=== PATIENT | male | born 1955 | race Caucasian/White ===

== ENCOUNTER 2017-02-20 13:42 | Emergency (ER) | payer OTHER ==
[2017-02-20 13:46] VITALS: TEMP 36.5
[2017-02-20] MEDS ORDERED: ASPIRIN 81 MG CHEW PO STA (14:26)
--- NOTE | 2017-02-20 14:29 | EMERGENCY ROOM VISIT NOTE ---
History First contact with patient: 14:14 Chief Complaint: ARM PAIN Stated Complaint: PAIN DOWN LEFT ARM, FINGERS AND NECK History of Present Illness The patient is a 61 year old male who presents to the Emergency Room via private vehicle accompanied by female with complaints of "pain down left arm, fingers and neck". 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 The patient states that he past few days has had gripping substernal chest pain as well. He rates the pain earlier as a 7/10, but notes now does a 2/10. There was associated nausea at the time of the event. At the time, he also stated his left arm felt numb, and was weaker than the rest however at this time notes that the strength has returned. He denies any shortness of breath, chest pain, speech troubles, weakness in the other extremities, history of blood clots. He does smoke 50 years. Review of Systems A complete 10-point Review of Systems was discussed with the patient, with pertinent positives and negatives listed in the History of Present Illness. All remaining Review of Systems questions can be considered negative unless otherwise specified. Past Medical/Surgical History Skin problems, bronchitis. Family History Heart disease, high blood pressure, cancer, Parkinson's. Social History Smoking Status: Current Every Day Smoker Patient lives with spouse, is currently employed. Admits to tobacco use 50 years, and denies alcohol use. Current/Historical Medications No Active Prescriptions or Reported Meds Physical Exam Vital Signs Date Time Temp Pulse Resp B/P (MAP) Pulse Ox O2 Delivery O2 Flow Rate FiO2 02/20/17 17:35 60 16 130/77 99 Room Air 02/20/17 16:00 63 16 117/83 98 Room Air 02/20/17 15:08 70 16 130/74 98 Room Air 02/20/17 15:07 98 Room Air 02/20/17 13:46 36.5 72 20 145/60 98 Room Air Physical Exam VITAL SIGNS - Vital signs and nursing notes were reviewed. Patient is afebrile , hypertensive at 145/60, non-tachycardic and saturating well on room air 98%. GENERAL -61-year-old male appearing his stated age who is in no acute distress. Communicates well with provider and answers questions appropriately. SKIN - Without rashes. No petechial rashes. HEAD - NC/AT. EYES - PERRL with EOMI bilaterally. Sclera anicteric. Palpebral conjunctiva pink and moist with no injection noted. EARS - No deformities of external structures noted on gross examination bilaterally. No pain elicited with palpation of the tragus bilaterally. External auditory canals without discharge or otorrhea. Tympanic membranes pearly magana without retraction or bulging. No fluid or purulent material visualized behind the TM. Handle of malleus, umbo, cone of light, pars tensa/ flaccid all easily visualized. NOSE - Midline and without cyanosis. No epistaxis or purulent drainage noted. Septum midline without deviation or septal hematoma noted. MOUTH/OROPHARYNX - Without perioral cyanosis. Buccal mucosa pink and moist and without leukoplakia. Tongue midline with equal elevation of palate bilaterally. No tonsillar hypertrophy, erythema, or exudates noted. [] dentition noted. NECK - Neck with FROM. Supple to palpation. No lymphadenopathy noted. No nuchal rigidity. There is no reproducible tenderness upon range of motion of the neck. LUNGS - Chest wall symmetric without accessory muscle use, intercostals retractions, or central cyanosis. Normal vesicular breath sounds CTA B/L. No wheezes, rales, or rhonchi appreciated. CARDIAC - RRR with S1/S2. No murmur, rubs, or gallops appreciated. ABDOMEN - Abdominal contour without pulsations or visible masses. BS normoactive all four quadrants. No tenderness, palpable masses, hepatosplenomegaly, or ascites noted. EXTREMITIES - No clubbing or peripheral cyanosis. No pretibial edema present. He is neurovascularly intact in the extremities. +5/5 strength noted in UE/LE bilaterally. NEUROLOGIC - Cranial nerves II through XII grossly intact. Sensory intact to light touch throughout. PSYCH - A&Ox3 and cooperates fully with examiner. Pt is very pleasant and interacts well with examiner. Medical Decision & Procedures ER Provider Diagnostic Interpretation: SINGLE VIEW CHEST CLINICAL HISTORY: Left arm pain and numbness. FINDINGS: 2 AP, portable, upright chest radiographs are obtained. No prior studies are available for comparison at the time of dictation. The examination is degraded by portable technique and patient rotation. The heart is top normal for projection. The mediastinal contour is within normal limits. The lungs appear hyperinflated and hyperlucent with flattening the diaphragm suggesting obstructive physiology. Nonspecific interstitial thickening is noted. No airspace consolidation, large pleural effusion, or pneumothorax is seen. There is a 7 mm nodular density in the right upper lobe. Small calcified granulomas are suspected. The bony thorax is grossly intact. IMPRESSION: 1. Findings suggest obstructive physiology. No acute cardiopulmonary abnormality is seen. 2. A 7 mm nodular density is suggested in the right upper lobe. Follow-up with a nonemergent chest CT is recommended for further interrogation. Electronically signed by: Jerardo Swift M.D. 02/20/2017 2:59 PM Dictated Date/Time: 02/20/2017 2:57 PM Laboratory Results 02/20/17 14:36 Red Blood Count 4.67, Mean Corpuscular Volume 89.5, Mean Corpuscular Hemoglobin 31.0, Mean Corpuscular Hemoglobin Concent 34.7, Mean Platelet Volume 8.9, Neutrophils (%) (Auto) 61.0, Lymphocytes (%) (Auto) 29.7, Monocytes (%) (Auto) 6.7, Eosinophils (%) (Auto) 2.0, Basophils (%) (Auto) 0.4, Neutrophils # (Auto) 5.87, Lymphocytes # (Auto) 2.86, Monocytes # (Auto) 0.65, Eosinophils # (Auto) 0.19, Basophils # (Auto) 0.04 02/20/17 14:36 Test 02/20/17 14:36 02/20/17 17:18 White Blood Count 9.63 K/uL (4.8-10.8) Red Blood Count 4.67 M/uL (4.7-6.1) Hemoglobin 14.5 g/dL (14.0-18.0) Hematocrit 41.8 % (42-52) Mean Corpuscular Volume 89.5 fL (80-100) Mean Corpuscular Hemoglobin 31.0 pg (25-34) Mean Corpuscular Hemoglobin Concent 34.7 g/dl (32-36) Platelet Count 243 K/uL (130-400) Mean Platelet Volume 8.9 fL (7.4-10.4) Neutrophils (%) (Auto) 61.0 % Lymphocytes (%) (Auto) 29.7 % Monocytes (%) (Auto) 6.7 % Eosinophils (%) (Auto) 2.0 % Basophils (%) (Auto) 0.4 % Neutrophils # (Auto) 5.87 K/uL (1.4-6.5) Lymphocytes # (Auto) 2.86 K/uL (1.2-3.4) Monocytes # (Auto) 0.65 K/uL (0.11-0.59) Eosinophils # (Auto) 0.19 K/uL (0-0.5) Basophils # (Auto) 0.04 K/uL (0-0.2) RDW Standard Deviation 42.9 fL (36.4-46.3) RDW Coefficient of Variation 13.3 % (11.5-14.5) Immature Granulocyte % (Auto) 0.2 % Immature Granulocyte # (Auto) 0.02 K/uL (0.00-0.02) Prothrombin Time 10.4 SECONDS (9.0-12.0) Prothromb Time International Ratio 1.0 (0.9-1.1) Activated Partial Thromboplast Time 26.3 SECONDS (21.0-31.0) Partial Thromboplastin Ratio 1.0 Anion Gap 4.0 mmol/L (3-11) Estimated GFR () 82.9 Estimated GFR (Non- 71.6 BUN/Creatinine Ratio 15.6 (10-20) Calcium Level 8.9 mg/dl (8.5-10.1) Magnesium Level 2.1 mg/dl (1.8-2.4) Total Bilirubin 0.5 mg/dl (0.2-1) Aspartate Amino Transf (AST/SGOT) 16 U/L (15-37) Alanine Aminotransferase (ALT/SGPT) 21 U/L (12-78) Alkaline Phosphatase 117 U/L (45-117) Troponin I < 0.015 ng/ml (0-0.045) Total Protein 7.0 gm/dl (6.4-8.2) Albumin 3.8 gm/dl (3.4-5.0) Globulin 3.2 gm/dl (2.5-4.0) Albumin/Globulin Ratio 1.2 (0.9-2) Thyroid Stimulating Hormone (TSH) 0.999 uIu/ml (0.300-4.500) Bedside Troponin I < 0.030 ng/ml (0-0.045) Medications Administered Medications (Trade) Dose Ordered Sig/Janeen Route Start Time Stop Time Status Last Admin Dose Admin Aspirin (Aspirin Chew) 324 mg NOW STAT PO 02/20/17 14:26 02/20/17 14:28 DC 02/20/17 14:26 324 MG Medical Decision Patient was seen and evaluated as above. After pending a thorough history and physical examination IV access was initiated, and the above workup was performed. Patient was asked to us here today with left arm pain/numbness. Bedside EKG reveals normal sinus rhythm, rate of 62 bpm. Questionable septal infarct, however at this time he does appear to have a stable EKG without evidence of active DE. He has no chest pain at this time. His risk factors are smoking [address] the head was performed secondary to the numbness he had subjectively, and this was negative. NIH stroke scale is 0. CBC reveals no leukocytosis. Slight anemia noted with red blood cell count 4.67. Coag study unremarkable. CMP reveals chloride high at 109. Creatinine at 1.1. Troponin negative 2. TSH unremarkable. Chest x-ray remarkable for acute process, slight obstructive chronic finding. Patient was informed upon the nodular finding any notes that he had a biopsy performed 10 years ago. They believe that this may be glass secondary to his previous occupation. I initially thought this patient would benefit from inpatient management, and discussed the case with my attending. I spoke with the hospitalist, who evaluated the patient thought that he was stable for outpatient management. The decision was then made to let the patient go home after repeating the second troponin, and follow-up with his family doctor. I tried to call his family doctor to schedule potential stress test, and no answer was found. I encouraged the patient to call his family doctor, tomorrow to schedule an appointment/stress test. He was also given number for cardiology. He is also given our number here for any questions or concerns that he encounters. He was educated upon worrisome symptoms which to return, had questions or discharge, and was discharged home in good condition. 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 It is possible this is of muscular etiology. In evaluation treatment this patient following differential diagnoses were entertained: DE, PE, musculoskeletal pain, neurologic etiology, among others. Impression Primary Impression: Arm pain, left Additional Impression: Left arm numbness Departure Information Dispostion Home / Self-Care Condition GOOD Prescriptions No Active Prescriptions or Reported Meds Referrals No Doctor, Assigned (PCP) Patient Instructions My [facility] Additional Instructions You have been treated in the Emergency Department your left arm Pain. Laboratory results and imaging studies have ruled out any emergent causes for your abdominal pain which would warrant admission or surgery. For pain control, you can use the following [id number] medicines (if >12 yo): - Regular strength (325mg/tab) Tylenol (acetaminophen) 2 tabs every 4-6 hours as needed. Do not exceed 12 tablets in a 24 hour period. Avoid taking more than 3 grams (3000 mg) of Tylenol per day. This includes any other sources of acetaminophen you may take on a regular basis. - Regular strength (200 mg/tab) Advil (ibuprofen) 1-2 tabs every 4-6 hours as needed. Do not exceed a dose of 3200 mg per day. Drink plenty of water and stay well hydrated. Please no strenuous activity until evaluated by cardiology/your family doctor. As with any trip to the Emergency Department, you should follow-up with your Primary Care Provider from today's visit. Please call your family doctor to schedule an outpatient stress test which is recommended today, as well as follow -up. I have also copied your chest x-ray results that recommend a follow-up CT scan. Please follow-up with your family doctor regarding this. [phone] is our number here in the emergency department if you have any questions or concerns. Dr. Lacho Shah MD ([employer]) [address] [facility] [place] [id number] Return to the emergency department if your symptoms persist despite treatment plan outlined above or if the following symptoms occur: increased fevers, chills , worsening nausea/vomiting, blood in your stool or urine. SINGLE VIEW CHEST CLINICAL HISTORY: Left arm pain and numbness. FINDINGS: 2 AP, portable, upright chest radiographs are obtained. No prior studies are available for comparison at the time of dictation. The examination is degraded by portable technique and patient rotation. The heart is top normal for projection. The mediastinal contour is within normal limits. The lungs appear hyperinflated and hyperlucent with flattening the diaphragm suggesting obstructive physiology. Nonspecific interstitial thickening is noted. No airspace consolidation, large pleural effusion, or pneumothorax is seen. There is a 7 mm nodular density in the right upper lobe. Small calcified granulomas are suspected. The bony thorax is grossly intact. IMPRESSION: 1. Findings suggest obstructive physiology. No acute cardiopulmonary abnormality is seen. 2. A 7 mm nodular density is suggested in the right upper lobe. Follow-up with a nonemergent chest CT is recommended for further interrogation. Electronically signed by: Jerardo Swift M.D. 02/20/2017 2:59 PM Dictated Date/Time: 02/20/2017 2:57 PM Problem Qualifiers
[2017-02-20 14:51] LABS: BASO % 0.4 %; BASO ABS # 0.04 K/uL (0-0.2); COMPLETE YES; HEMATOCRIT 41.8 % (42-52); IG% 0.2 %; LYMPH % 29.7 %; LYMPH ABS # 2.86 K/uL (1.2-3.4); MEAN CELL VOLUME 89.5 fL (80-100); MEAN CORPUSCULAR HGB CONC 34.7 g/dl (32-36); MEAN PLATELET VOLUME 8.9 fL (7.4-10.4); MONO % 6.7 %; PLATELET COUNT 243 K/uL (130-400); RED BLOOD COUNT 4.67 M/uL (4.7-6.1); WHITE BLOOD COUNT 9.63 K/uL (4.8-10.8)
--- NOTE | 2017-02-20 15:00 | DIAGNOSTIC IMAGING REPORT ---
SINGLE VIEW CHEST CLINICAL HISTORY: Left arm pain and numbness. FINDINGS: 2 AP, portable, upright chest radiographs are obtained. No prior studies are available for comparison at the time of dictation. The examination is degraded by portable technique and patient rotation. The heart is top normal for projection. The mediastinal contour is within normal limits. The lungs appear hyperinflated and hyperlucent with flattening the diaphragm suggesting obstructive physiology. Nonspecific interstitial thickening is noted. No airspace consolidation, large pleural effusion, or pneumothorax is seen. There is a 7 mm nodular density in the right upper lobe. Small calcified granulomas are suspected. The bony thorax is grossly intact. IMPRESSION: 1. Findings suggest obstructive physiology. No acute cardiopulmonary abnormality is seen. 2. A 7 mm nodular density is suggested in the right upper lobe. Follow-up with a nonemergent chest CT is recommended for further interrogation. Electronically signed by: Jerardo Swift M.D. 02/20/2017 2:59 PM Dictated Date/Time: 02/20/2017 2:57 PM
[2017-02-20 15:02] LABS: ALT/SGPT 21 U/L (12-78); AST/SGOT 16 U/L (15-37); BLOOD UREA NITROGEN 17 mg/dl (7-18); BUN/CREATININE RATIO 15.6 (10-20); CALCIUM 8.9 mg/dl (8.5-10.1); CARBON DIOXIDE 28 mmol/L (21-32); CHLORIDE 109 mmol/L (98-107); GLUCOSE 90 mg/dl (70-99); MAGNESIUM 2.1 mg/dl (1.8-2.4); POTASSIUM 3.9 mmol/L (3.5-5.1); PROTHROMBIN TIME (PATIENT) 10.4 SECONDS (9.0-12.0); SODIUM 141 mmol/L (136-145)
--- NOTE | 2017-02-20 15:06 | DIAGNOSTIC IMAGING REPORT ---
HEAD WITHOUT CONTRAST (CT) CLINICAL HISTORY: 61 years-old Male presenting with Left arm weakness, left arm pain, hand numbness. TECHNIQUE: Multidetector CT imaging of the head was performed without the use of intravenous contrast. IV contrast: None. A dose lowering technique was used consistent with the principles of ALARA (as low as reasonably achievable). COMPARISON: None. CT DOSE (mGy.cm): The estimated cumulative dose is 537.48 mGy.cm. FINDINGS: Corporate Trainer topogram: Unremarkable. Ventricles and sulci normal in size. Brain parenchyma normal in appearance with preserved magana-white differentiation. No mass effect or midline shift. No hemorrhage or acute territorial infarct. No extra-axial fluid collection. Paranasal sinuses and mastoid air cells clear. Calvarium intact. IMPRESSION: 1. No acute intracranial pathology. Electronically signed by: Shawn Nunn M.D. 02/20/2017 3:05 PM Dictated Date/Time: 02/20/2017 3:03 PM
[2017-02-20 15:07] VITALS: O2SAT 98
[2017-02-20 15:13] LABS: ALB/GLOB RATIO 1.2 (0.9-2); ALKALINE PHOSPHATASE 117 U/L (45-117); THYROID STIMULATING HORMONE 0.999 uIu/ml (0.300-4.500)
[2017-02-20 17:35] VITALS: BP 130/77; PULSE 60; O2SAT 99
--- NOTE | 2017-02-20 17:44 | Medical Consult ---
Consultation Note Date of Service Feb 20, 2017. Consultation Note HOSPITALIST CONSULT NOTE: DATE OF CONSULT 02/20/[address] Grey REASON FOR CONSULT Left arm pain since today History of Present Illness The patient is a 61 year old male, active smoker but no other past medical history, not on any medications at home, who presents to the Emergency Room via private vehicle accompanied by with complaints of "pain down left arm, fingers and neck". 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 Denies any associated nausea, vomiting, fever, chills, SOB, cough, leg swelling , chest pain. Does have hx of on and off episodes of chest pain lasting for few seconds, self limiting not associated with any other symptoms , no association with any exertion. In ER, hemodynamically stable. Labs- no sig abnormalities, EKG- NSR, no acute ischemic changes, Trop x 1 negative. We have been consulted to evaluate the patient for his symptoms. Review of Systems A complete 10-point Review of Systems was discussed with the patient, with pertinent positives and negatives listed in the History of Present Illness. All remaining Review of Systems questions can be considered negative unless otherwise specified. Past Medical/Surgical History Skin problems, bronchitis. Family History Heart disease, high blood pressure, cancer, Parkinson's. Social History Smoking Status: Current Every Day Smoker Patient lives with spouse, is currently employed. Admits to tobacco use 50 years, and denies alcohol use. Current/Historical Medications No Active Prescriptions or Reported Meds Physical Ex ED Main v5 Physical Exam Vital Signs Date Time Temp Pulse Resp B/P (MAP) Pulse Ox O2 Delivery O2 Flow Rate FiO2 02/20/17 13:46 36.5 72 20 145/60 98 Room Air Physical Exam VITAL SIGNS - Vital signs and nursing notes were reviewed. Patient is afebrile , hypertensive at 145/60, non-tachycardic and saturating well on room air 98%. GENERAL AAOX3, no distress HEAD - NC/AT. EYES - PERRLA Sclera anicteric. Palpebral conjunctiva pink and moist with no injection noted. EARS - No discharge noted. NECK - Supple to palpation. No lymphadenopathy noted. No nuchal rigidity. There is no reproducible tenderness upon range of motion of the neck. LUNGS - Chest wall symmetric without accessory muscle use, intercostals retractions, or central cyanosis. Normal vesicular breath sounds CTA B/L. No wheezes, rales, or rhonchi appreciated. CARDIAC - RRR with S1/S2. No murmur, rubs, or gallops appreciated. ABDOMEN - Soft, non tender, non distended, BS present EXTREMITIES - Left shoulder- normal range of motion, no edema in extremities NEUROLOGIC - Grossly no focal deficits noted PSYCH - A&Ox3 and cooperates fully with examiner. Pt is very pleasant and interacts well with examiner. 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 -Less likely to be cardiac -Has had few episodes of sharp chest pain, lasting for few seconds in past, not related to activity, self resolving. -EKG- no acute ischemic changes, Troponin x 1 negative -As no cardiac risk factors except smoking, EKG no acute changes, troponin x 1 negative, atypical presentation- left shoulder pain----> symptoms less likely to be cardiac Would recommend doing one more set of troponin, if negative discharge home with outpatient stress test recommendation. Case and recommendations were discussed with JJ Jacques and Dr Grey.' Thank you for allowing us to participate in care of this patient.
--- NOTE | 2017-02-20 17:47 | EMERGENCY ROOM VISIT NOTE ---
ED Visit Note First contact with patient: 14:14 Patient was seen by our PA/CLOTHING SALES ASSISTANT. I was involved in the patient's care and did evaluate the patient myself. I was involved in the care throughout the ER stay. Patient presents with left arm discomfort while doing some work with his arms. His ED cardiac workup was benign but a medical consult was placed for possible admission/observation for further cardiac workup. He was seen by medicine and they felt he was stable for discharge. A second troponin was done during his ER stay, this was also negative. No EKG changes. The patient will be discharged with outpatient follow-up. He will need a stress test as an outpatient and this can be arranged through his doctor's office. He will return to this ER for any worsening discomfort or any exertional symptoms.
== END 2017-02-20 18:24 | disposition home or self-care (01) ==
LOC: C.EDB 13:47 → C.EDA 18:24
DX: M79.602 Pain in left arm (principal); R20.2 Paresthesia of skin; F17.200 Nicotine dependence, unspecified, uncomplicated